=== PATIENT | male | born 2000 | race Caucasian/White ===

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

== ENCOUNTER 2022-07-29 13:58 | Emergency (ER) | payer BC, SELFPAY ==
[2022-07-29 14:15] VITALS: BP 128/89; PULSE 81; RESP 16; TEMP 36.7; O2SAT 99; BMI 19.9
[2022-07-29 14:31] LABS: MANUAL DIFF FLAG NO
[2022-07-29 14:33] LABS: Basophils Percent Auto 0.3 % (0-2); Eosinophils Percent Auto 0.2 % (0-4); Hematocrit 44.9 % (42.0-52.0); Hemoglobin 15.8 g/dl (14.0-18.0); Imm Gran Abs Auto 0.01 X10*3/uL (0.00-0.03); Imm Gran Pct Auto 0.2 % (0.0-0.4); Lymphocytes Absolute Auto 0.7 X10*3/uL (1.2-4.9); Lymphocytes Percent Auto 10.9 % (20-40); Mean Corpuscular HGB Conc 35.2 g/dl (31.0-36.0); Mean Corpuscular Volume 91.1 fL (80.0-98.0); Mean Platelet Volume 9.8 fL (9.4-12.4); Monocytes Absolute Auto 0.9 X10*3/uL (0.1-1.2); Monocytes Percent Auto 14.8 % (2-11); Neutrophils Absolute Auto 4.4 x10*3/uL (2.0-8.3); Neutrophils Percent Auto 73.6 % (45-73); Platelet Count 198 X10*3/uL (160-400); Red Blood Count 4.93 X10*6/uL (4.60-5.80); Red Cell Distribution Width 11.7 % (11.0-16.0)
[2022-07-29 14:48] LABS: Alanine Aminotransferase 21 U/L (0-40); Albumin Level 4.6 g/dL (3.5-5.0); Alkaline Phosphatase 82 U/L (39-117); Anion Gap 19 (12-20); Aspartate Amino Transferase 23 U/L (5-37); Blood Urea Nitrogen 11 mg/dL (9-16); Calcium 9.6 mg/dL (8.4-10.2); Carbon Dioxide 28 mmol/L (22-29); Chloride 94 mmol/L (96-108); Creatinine Clr Calc Pharmacy 95.3; Estimated Glomerular Filt Rate > 60; Glucose Random 84 mg/dL (60-115); Lipase 12 U/L (8-78); Potassium 3.7 mmol/L (3.3-5.1); Sodium 137 mmol/L (135-145); Total Protein 7.2 g/dL (6.5-8.0)
--- NOTE | 2022-07-29 14:56 | ED.GENADULT ---
HPI - General Adult General Chief complaint: Abdominal Pain Stated complaint: l side abd pain vomiting Time Seen by Provider: 07/29/22 17:27 Source: patient Mode of arrival: ambulatory Limitations: no limitations History of Present Illness HPI narrative: Patient otherwise healthy complaining of nausea vomiting diarrhea with upper abdominal pain for last 3 days started with vomiting and diarrhea the notice pain in the upper abdomen after vomiting which is watery and getting better vomiting about 7 to 8 times a day today vomited only 4 times also having watery diarrhea no recent intake of antibiotic no recent intake of seafood or travel no other family member sick no fever or chills Related Data Previous Rx's Medication Instructions Recorded omeprazole 20 mg capsule,delayed 20 mg PO DAILY #14 caps 07/29/22 release ondansetron 4 mg disintegrating 4 mg PO Q6-8H PRN nausea and 07/29/22 tablet vomiting #7 tabs sucralfate 1 gram tablet 1 g PO BID #30 tabs 07/29/22 Allergies Allergy/AdvReac Type Severity Reaction Status Date / Time No Known Allergies Allergy Unverified 11/05/19 17:29 Review of Systems Review of Systems: Yes all other systems are reviewed and are negative [facility] Social History Social History Smoked in Last 30 Days: No Use of substances other than those prescribed or required for medical reasons: Yes Substance Use Type: Marijuana Last Used Substance: Days (ago) Advance Directives: No Physical Exam ED Vital Signs: Vital Signs - 24 hr 07/29/22 14:15 07/29/22 17:11 07/29/22 20:25 Temperature 98.1 F Pulse Rate 81 90 87 Respiratory Rate 16 16 18 Blood Pressure 128/89 141/87 H 125/78 Pulse Oximetry 99 96 97 Oxygen Delivery Method Room Air Room Air Room Air BMI result Body Mass Index 19.9 Appearance: Alert. Oriented X3. No acute distress. Eyes: PERRLA, No Nystagmus ENT: Pharynx normal. Oral Mucosa moist Neck: Normal inspection. Neck supple. CVS: Normal heart rate and rhythm. Pulses normal. Respiratory: No respiratory distress. Equal air entry bilateral, no wheezing/rales/rhonchi Abdomen: Soft, mild epigastric tenderness no rebound tenderness or guarding. Bowel sounds are present, no mass palpable, no CVA tenderness Skin: Skin warm and dry. Normal skin color. Normal skin turgor. Extremities: No lower extremity edema. No calf tenderness Neuro: Oriented X 3. No motor deficit. Course Course Course Narrative: RME: 22 yold male presens to the ED for abdominal pain after eating. no chest pain, shortness of breath, or recent trauma. labs ordered Medications Administered Discontinued Medications Generic Name Dose Route Start Last Admin Trade Name Freq PRN Reason Stop Dose Admin Al Hydroxide/Mg Hydroxide 30 ml 07/29/22 19:29 07/29/22 19:36 Magnesium Hydrox/Alum Hydrox 30 Ml Oral.Susp PO 07/29/22 19:30 30 ml ONCE ONE Administration Famotidine 20 mg 07/29/22 18:01 07/29/22 18:14 Famotidine/Pf 20 Mg/2 Ml Vial IVPUSH 07/29/22 18:02 20 mg ONCE ONE Administration Sodium Chloride 1,000 mls @ 999 mls/hr 07/29/22 18:01 07/29/22 18:14 Ns IV 07/29/22 19:01 999 mls/hr .Q1H1M ONE Administration Ketorolac Tromethamine 30 mg 07/29/22 19:29 07/29/22 19:36 Ketorolac Tromethamine 30 Mg/Ml Vial IVPUSH 07/29/22 19:30 30 mg ONCE ONE Administration Ondansetron HCl 4 mg 07/29/22 18:01 07/29/22 18:14 Ondansetron Hcl 4 Mg/2 Ml Vial IVPUSH 07/29/22 18:02 4 mg ONCE ONE Administration Medical Decision Making Medical Decision Making [facility] Narrative: Patient with acute gastroenteritis improved after IV fluids had pain upper abdomen which improved after Maalox likely gastritis discharge patient home on Prilosec Maalox and Zofran labs are stable Differential Diagnosis Pancreatitis/gastritis/gastroenteritis Lab Data [facility] Lab Attestation statement: I reviewed the patient's lab results. 07/29/22 14:26 07/29/22 14:26 Labs: Lab Results 07/29/22 07/29/22 Range/Units 14:26 14:26 WBC 6.0 (4.8-10.8) X10*3/uL RBC 4.93 (4.60-5.80) X10*6/uL Hgb 15.8 (14.0-18.0) g/dl Hct 44.9 (42.0-52.0) % MCV 91.1 (80.0-98.0) fL MCH 32.0 (27.0-33.0) pg MCHC 35.2 (31.0-36.0) g/dl RDW 11.7 (11.0-16.0) % Plt Count 198 (160-400) X10*3/uL MPV 9.8 (9.4-12.4) fL Immature Gran % (Auto) 0.2 (0.0-0.4) % Neut % (Auto) 73.6 H (45-73) % Lymph % (Auto) 10.9 L (20-40) % [place] % (Auto) 14.8 H (2-11) % Eos % (Auto) 0.2 (0-4) % Baso % (Auto) 0.3 (0-2) % Lymph # (Auto) 0.7 L (1.2-4.9) X10*3/uL [place] # (Auto) 0.9 (0.1-1.2) X10*3/uL Eos # (Auto) 0.0 (0.0-0.4) X10*3/uL Baso # (Auto) 0.0 (0.0-0.2) X10*3/uL Abs Immat Gran (auto) 0.01 (0.00-0.03) X10*3/uL Absolute Neuts (auto) 4.4 (2.0-8.3) x10*3/uL Absolute Nucleated RBC 0.000 (0.0-0.012) X10*3/uL Nucleated RBC % (auto) 0.0 (0.0-0.2) /100WBC Sodium 137 (135-145) mmol/L Potassium 3.7 (3.3-5.1) mmol/L Chloride 94 L (96-108) mmol/L Carbon Dioxide 28 (22-29) mmol/L Anion Gap 19 (12-20) BUN 11 (9-16) mg/dL Creatinine 1.07 (0.5-1.4) mg/dL Estim Creat Clear Calc 95.3 Estimated GFR > 60 Random Glucose 84 (60-115) mg/dL Calcium 9.6 (8.4-10.2) mg/dL Total Bilirubin 1.0 (0.0-1.0) mg/dL AST 23 (5-37) U/L ALT 21 (0-40) U/L Alkaline Phosphatase 82 (39-117) U/L Total Protein 7.2 (6.5-8.0) g/dL Albumin 4.6 (3.5-5.0) g/dL Lipase 12 (8-78) U/L Discharge Plan Discharge Clinical Impression: Gastroenteritis Patient Disposition: Home, Self-Care Instructions: Gastroenteritis (ED) Additional Instructions: Drink plenty of fluids Avoid fried food Take medication as prescribed Follow with PCP if not better Prescriptions: New ondansetron 4 mg tablet,disintegrating 4 mg PO Q6-8H PRN (Reason: nausea and vomiting) Qty: 7 0RF omeprazole 20 mg capsule,delayed release(DR/EC) 20 mg PO DAILY Qty: 14 0RF sucralfate 1 gram tablet 1 g PO BID Qty: 30 0RF Interventions: ED Discharge Assessment Last Done: 07/29/22 20:27 Discharge Date/Time: 07/29/22 20:28
[2022-07-29 17:11] VITALS: BP 141/87; PULSE 90; RESP 16; O2SAT 96
[2022-07-29] MEDS: Famotidine/PF 20 MG/2 ML VIAL IVPUSH (18:14)
[2022-07-29] MEDS: 0.9 % Sodium Chloride 1,000 ML 999 ML IV (18:14)
[2022-07-29] MEDS: ondansetron HCL 4 MG/2 ML VIAL IVPUSH (18:14)
[2022-07-29] MEDS: Ketorolac Tromethamine 30 MG/ML VIAL IVPUSH (19:36)
[2022-07-29] MEDS: Magnesium Hydrox/Alum Hydrox 30 ML ORAL.SUSP PO (19:36)
[2022-07-29 20:25] VITALS: BP 125/78; PULSE 87; RESP 18; O2SAT 97
== END 2022-07-29 20:28 | disposition home or self-care (01) ==
PROVIDERS: Emergency Provider Internal Medicine; PCP Pediatrics
DX: K52.9 Noninfective gastroenteritis and colitis, unspecified (principal); Z79.899 Other long term (current) drug therapy
CPT/HCPCS: 36415; 80053; 83690; 85025; 96374; 96375; 99284; 99285; J1885; J2405

== ENCOUNTER 2024-11-28 09:02 | Emergency (ER) | payer BC, SELFPAY ==
[2024-11-28 09:04] VITALS: BP 138/88; PULSE 80; RESP 15; TEMP 36.4; O2SAT 97; BMI 21.7
--- OUTSIDE RECORDS SUMMARY | 2024-11-28 09:23 | XMS_ITS | Encounter Summary ---
Author Organization [facility] Address [address] [place] [address] Phone Care Team Providers Care Autocad Name Role Phone Corrina Cassidy DO Primary Care Provider [phone] Encounter Details Date Type Department Care Team (Late st Contact Info) Description 11/21/2015 Documentation [facility] [place] [address] [place] [address] Family Medicine, Physician [address] [place], [place] [phone] Social History Tobacco Use Types Packs/Day Years Used Date Smoking Tobacco: Never Comments:Never smoker Sex and Gender Information Value Date Recorded Sex Assigned at Not on file Legal Sex Male 5:09 PM EDT Gender Identity Not on file Sexual Orientation Not on file documented as of this encounter Plan of Treatment Not on file documented as of this encounter Visit Diagnoses Not on filedocumented in this encounter Care Teams Autocad Relationship Specialty Start Date End Date Corrina Cassidy DO [address] [place] [address] PCP - General 09/28/16 05/16/23 documented as of this encounter
--- OUTSIDE RECORDS SUMMARY | 2024-11-28 09:23 | XMS_ITS | Encounter Summary ---
Author Organization [facility] Address [address] [place] [address] Phone Care Team Providers Care Clinical Psychiatrist Name Role Phone Corrina Cassidy DO Primary Care Provider [phone] Encounter Details Date Type Department Care Team (Late st Contact Info) Description 06/04/2013 Documentation [facility] [place] Family Medicine [address] [place] [address] Family Medicine, Physician [address] [place], [place] [phone] Social History Tobacco Use Types Packs/Day Years Used Date Smoking Tobacco: Never Assessed Sex and Gender Information Value Date Recorded Sex Assigned at Not on file Legal Sex Male 5:09 PM EDT Gender Identity Not on file Sexual Orientation Not on file documented as of this encounter Plan of Treatment Not on file documented as of this encounter Visit Diagnoses Not on filedocumented in this encounter Care Teams Clinical Psychiatrist Relationship Specialty Start Date End Date Corrina Cassidy DO [address] [place] [address] PCP - General 09/28/16 05/16/23 documented as of this encounter
--- OUTSIDE RECORDS SUMMARY | 2024-11-28 09:23 | XMS_ITS | Encounter Summary ---
Author Organization [facility] Address [address] [place] [address] Phone Care Team Providers Care Sales Closer Name Role Phone Corrina Cassidy DO Primary Care Provider [phone] Encounter Details Date Type Department Care Team (Late st Contact Info) Description 11/18/2015 Documentation [facility] [place] Family Medicine [address] [place] [address] Family Medicine, Physician [address] [place], [place] [phone] Social History Tobacco Use Types Packs/Day Years [...] on filedocumented in this encounter Care Teams Sales Closer Relationship Specialty Start Date End Date Corrina Cassidy DO [address] [place] [address] PCP - General 09/28/16 05/16/23 documented as of this encounter
--- OUTSIDE RECORDS SUMMARY | 2024-11-28 09:23 | XMS_ITS | Encounter Summary ---
Author Organization [facility] Address [address] [place] [address] Phone Care Team Providers Care Auto Air Conditioning Apprentice Name Role Phone Corrina Cassidy DO Primary Care Provider [phone] Encounter Details Date Type Department Care Team (Late st Contact Info) Description 11/21/2015 Documentation [facility] [place] Family Medicine [address] [place] [address] Family Medicine, Physician [address] [place], [place] [phone] Social History Tobacco Use Types Packs/Day Years [...] on filedocumented in this encounter Care Teams Auto Air Conditioning Apprentice Relationship Specialty Start Date End Date Corrina Cassidy DO [address] [place] [address] PCP - General 09/28/16 05/16/23 documented as of this encounter
--- OUTSIDE RECORDS SUMMARY | 2024-11-28 09:23 | XMS_ITS | Encounter Summary ---
Author Organization [facility] Address [address] [place] [address] Phone Care Team Providers Care Manager Cancer Name Role Phone Corrina Cassidy DO Primary Care Provider [phone] Encounter Details Date Type Department Care Team (Late st Contact Info) Description 11/18/2015 Documentation [facility] [place] Family Medicine [address] [place] [address] Family Medicine, Physician [address] [place], [place] [phone] Social History Tobacco Use Types Packs/Day Years [...] on filedocumented in this encounter Care Teams Manager Cancer Relationship Specialty Start Date End Date Corrina Cassidy DO [address] [place] [address] PCP - General 09/28/16 05/16/23 documented as of this encounter
--- OUTSIDE RECORDS SUMMARY | 2024-11-28 09:23 | XMS_ITS | Encounter Summary ---
Author Organization [facility] Address [address] [place] [address] Phone Care Team Providers Care Inpatient Care Manager Rn Name Role Phone Corrina Cassidy DO Primary Care Provider [phone] Encounter Details Date Type Department Care Team (Late st Contact Info) Description 10/04/2016 Conversion Encounter [facility] [place] [address] [place] [address] Social History Tobacco Use Types Packs/Day Years [...] on filedocumented in this encounter Care Teams Inpatient Care Manager Rn Relationship Specialty Start Date End Date Corrina Cassidy DO [address] [place] [address] PCP - General 09/28/16 05/16/23 documented as of this encounter
--- OUTSIDE RECORDS SUMMARY | 2024-11-28 09:24 | XMS_ITS | Encounter Summary ---
Author Organization [facility] Address [address] [place] [address] Phone Care Team Providers Care Clam Treader Name Role Phone Corrina Cassidy DO Primary Care Provider [phone] Encounter Details Date Type Department Care Team (Late st Contact Info) Description 06/03/2013 Documentation [facility] [place] Family Medicine [address] [place] [address] Family Medicine, Physician [address] [place], [place] [phone] Social History Tobacco Use Types Packs/Day Years [...] on filedocumented in this encounter Care Teams Clam Treader Relationship Specialty Start Date End Date Corrina Cassidy DO [address] [place] [address] PCP - General 09/28/16 05/16/23 documented as of this encounter
--- OUTSIDE RECORDS SUMMARY | 2024-11-28 09:24 | XMS_ITS | Encounter Summary ---
Author Organization [facility] Address [address] [place] [address] Phone Care Team Providers Care Perfume Maker Name Role Phone Corrina Cassidy DO Primary Care Provider [phone] Encounter Details Date Type Department Care Team (Late st Contact Info) Description 06/24/2014 Documentation [facility] [place] Family Medicine [address] [place] [address] Family Medicine, Physician [address] [place], [place] [phone] Social History Tobacco Use Types Packs/Day Years [...] on filedocumented in this encounter Care Teams Perfume Maker Relationship Specialty Start Date End Date Corrina Cassidy DO [address] [place] [address] PCP - General 09/28/16 05/16/23 documented as of this encounter
--- OUTSIDE RECORDS SUMMARY | 2024-11-28 09:24 | XMS_ITS | Encounter Summary ---
Author Organization [facility] Address [address] [place] [address] Phone Care Team Providers Care Bull Rider Name Role Phone Corrina Cassidy DO Primary Care Provider [phone] Encounter Details Date Type Department Care Team (Late st Contact Info) Description 06/04/2013 Documentation [facility] [place] Family Medicine [address] [place] [address] Family Medicine, Physician [address] [place], [place] [phone] Social History Tobacco Use Types Packs/Day Years [...] on filedocumented in this encounter Care Teams Bull Rider Relationship Specialty Start Date End Date Corrina Cassidy DO [address] [place] [address] PCP - General 09/28/16 05/16/23 documented as of this encounter
--- OUTSIDE RECORDS SUMMARY | 2024-11-28 09:24 | XMS_ITS | Encounter Summary ---
Author Organization [facility] Address [address] [place] [address] Phone Care Team Providers Care Document Review Specialist Name Role Phone Corrina Cassidy DO Primary Care Provider [phone] Encounter Details Date Type Department Care Team (Late st Contact Info) Description 04/08/[address] [facility] [place] Family Medicine [address] [place] [address] Family Medicine, Physician [address] [place], [place] [phone] Social History Tobacco Use Types Packs/Day Years [...] on filedocumented in this encounter Care Teams Document Review Specialist Relationship Specialty Start Date End Date Corrina Cassidy DO [address] [place] [address] PCP - General 09/28/16 05/16/23 documented as of this encounter
--- OUTSIDE RECORDS SUMMARY | 2024-11-28 09:24 | XMS_ITS | Encounter Summary ---
Author Organization [facility] Address [address] [place] [address] Phone Care Team Providers Care Internet Security Specialist Name Role Phone Corrina Cassidy DO Primary Care Provider [phone] Encounter Details Date Type Department Care Team (Late st Contact Info) Description 09/05/2015 [place]ation [facility] [place] [address] [place] [address] Family Medicine, Physician [address] [place], [place] [phone] Social History Tobacco Use Types Packs/Day Years [...] on filedocumented in this encounter Care Teams Internet Security Specialist Relationship Specialty Start Date End Date Corrina Cassidy DO [address] [place] [address] PCP - General 09/28/16 05/16/23 documented as of this encounter
--- OUTSIDE RECORDS SUMMARY | 2024-11-28 09:24 | XMS_ITS | Clinical Summary ---
Author Organization [facility] Address [address] [place] [address] Phone Care Team Providers Care Accountant Helper Name Role Phone Unavailable Primary Care Provider Unavailabl e Allergies No known active allergies Medications ibuprofen 600 MG tablet TAKE 1 TABLET BY MOUTH EVERY 6 HOURS WITH FOOD 1 04/27/2019 Active Active Problems Problem Noted Date Diagnosed Date Influenza vaccine refused 05/31/2021 Acne vulgaris 05/22/2017 Resolved Problems Problem Noted Date Diagnosed Date Resolved Date Concussion with no loss of consciousness 05/22/2017 05/30/2017 Assessment & Plan (05/22/2017 4:55 PM EDT): Give acetaminophen every 4 hours OR ibuprofen every 6 hours for headache. Concussion handout given and reviewed. Do only activities that don't worsen your headache or put you at risk for another hit to your head - no contact sports until you are symptom free (headache, fatigue, fogginess etc) for as long as you had symptoms AND you are able to jog, walk and get your school work done without your symptoms returning. Call for vomiting, change in mental status, or other persistant symptoms that last more than a week, or if you are unable to progress through activity levels appropriately. Remember to drink lots of water, Eat healthy foods - at least 3 meals per day, and get a good nights sleep. Significantly limit screen and phone time. Followup here if you are not feeling better in one to two weeks, sooner if symptoms are worsening with vomiting etc.. Follow up with Dr Cassidy later next week. If you are feeling well she can write a note for you to return to sports, if not she can refer you to sports medicine for rehab. Immunizations Immunization Administration Dates Next Due DTaP 5 08/23/2006, 4,2002,10/09,2002 HPV Vaccine 9 Valent 12/13/2017,12/12/2016 Hep A, ped/adol 06/23/2014,06/03/2013 Hep B, ped/adol 12/13/2017, 3,2002,04/07 Hib (HbOC) 01/07/2004 Hib (PRP-T) 2002,2002,2002 IPV 08/23/2006, 4,2002,06/17 Influenza, injectable, quadr ivalent, preservative free 12/15/2018,12/13/2017,12/12/2016,11/17 Influenza, injectable, trivalent 11/03/2008,12/19 Influenza, intranasal, trivalent 11/18/2009 MMR 04/23/2003 MMRV 08/23/2006 Meningococcal Conj (Menactra) MCV4P 12/15/2018,0 06/03/2013 Pneumococcal Conjugate 01/07/2004,2002,2002,06/17 Tdap 06/03/2013 Varicella 04/23/2003 Family History Medical History Relation Name Comments Hypertension Maternal Grandfather Diabetes Maternal Grandmother Anxiety disorder Mother Skin cancer Paternal Grandfather Relation Name Status Comments Brother Alive Brother: Alive and well Father Alive Father: Alive a nd well Maternal Grandfather Materna l grandfather: Hypertension Maternal Grandmother Mother Alive Mother: Hearing loss Paternal Grandfather Sister Alive Sister: Hearing loss Social History Tobacco Use Types Packs/Day Years Used Date Smoking Tobacco: Never Smokeless Tobacco: Never Tobacco Cessation:Counseling Given: No Comments:Never smoker Alcohol Use Standard Drinks/Week Comments No 0 (1 standard drink = 0.6 oz pur e alcohol) Hunger/Food Answer Date Recorded In the last 12 months, did y ou or your family ever eat less than you felt you should because there wasn't enough money for food? No 05/31/2021 Stable Housing Answer Date Recorded Are you worried that in the next 2 months you may not have stable housing? No 05/31/2021 Transportation Concerns Answer Date Rec orded In the last 12 months, have you or your family ever had to go without healthcare because you didn't have a way to get there? No 05/31/2021 Hazards in Home Answer Date Recorded Think about the place you li ve. Do you have problems with any of the following? Pests (mice or roaches), mold, no/not working smoke detectors, water leaks, no window guards. No 2021 Financing Utilities Answer Date Recorde d In the last 12 months, has t he electric, gas, oil, or water company threatened to shut off your services in your home? No 05/31/2021 Safety at Home Answer Date Recorded Are you or your family worried about feeling saf e in your home? No 05/31/2021 Outside Support Answer Date Recorded Do you feel that you need mo re support from other people or programs to help you care for yourself or your family? No 05/31/2021 Understanding Health Concerns Answer Da te Recorded Do you need help understandi ng your or your child's healthcare needs (diagnosis, medications, plan, etc.)? No 05/31/2021 Financing Health Concerns Answer Date R ecorded In the last 12 months, was t here a time when your child needed to see a doctor or get medications or supplies but could not because of cost? No 05/31/2021 Missing School or Work Answer Date Emerson rded Did you or your child miss s chool or work because of a health problem that could have been avoided? No 05/31/2021 Sex and Gender Information Value Date Recorded Sex Assigned at Not on file Legal Sex Male 5:09 PM EDT Gender Identity Not on file Sexual Orientation Not on file Last Filed Vital Signs Vital Sign Reading Time Taken Comments Blood Pressure 116/76 05/31/2021 2:56 PM EDT Pulse 90 05/31/2021 2:56 PM EDT Temperature 37.3 C (99.2 F) 05/31/2021 2:56 PM EDT Respiratory Rate - - Oxygen Saturation 97% 09/01/2015 12: 00 AM EDT Inhaled Oxygen Concentration - - Weight 55.2 kg (121 lb 12.8 oz) 05/31/2021 2:56 PM EDT Height 172.7 cm (5' 8 ) 05/31/2021 2:56 PM EDT Body Mass Index 18.52 05/31/2021 2:56 PM EDT Plan of Treatment Health Maintenance Due Date Last Done Comments Men B Vaccine (1 of 2 - Standard) 2018 DTaP,Tdap,and Td Vaccines (7 - Td or Tdap) 06/04/2023 06/03/2013, 08/23/2006, 01/07/2004, Additional history exists Influenza Vaccines (#1) 2024 12/16/19 19, 12/13/2017, 12/12/2016, Additional history exists COVID-19 Vaccine (3 - 2024-2 6 season) 2024 03/30/2020, 03/09/2020 HIB Vaccines Completed 01/07/2004, 07/2002, 2002, Additional history exists Pneumococcal Vaccine Completed 01/07/2004, 2002, 2002, Additional history exists IPV Vaccines Completed 08/23/2006, 03/2003, 2002, Additional history exists MMR Vaccines Completed 08/23/2006, 04/23/2003 Varicella Vaccines Completed 08/23/2006, 04/23/2003 Hepatitis A Vaccines Completed 06/23/2014, 06/04/19 14 HPV Vaccines Completed 12/13/2017, 12/12/2016 Hepatitis B Vaccines Completed 12/13/2017, 2002, 2002, Additional history exists Meningococcal Vaccine Completed 12/15/2018, 014 Insurance [facility]
--- OUTSIDE RECORDS SUMMARY | 2024-11-28 09:24 | XMS_ITS | Clinical Summary ---
Author Organization [facility] Address [address] [place] [id number] Phone Care Team Providers Care Lane Attendant Name Role Phone Corrina Cassidy Primary Care Provider [phone] Allergies No known active allergies Medications No known medications Active Problems No known active problems Social History Tobacco Use Types Packs/Day Years Used Date Smoking Tobacco: Never Smokeless Tobacco: Never Alcohol Use Standard Drinks/Week Comments Never 0 (1 standard drink = 0.6 oz pur e alcohol) Education Answer Date Recorded Are you interested in more education? Not on archana e 06/15/2022 Are you concerned about learning? Not on file 06/15/2022 No 06/15/2022 No 06/15/2022 Digital Access Answer Date Recorded No 07/14/2022 No 07/14/2022 No 07/14/2022 Reliable internet access at home? Not on file 07/14/2022 Device with a working camera? Not on file Sex and Gender Information Value Date Recorded Sex Assigned at Not on file Legal Sex Male 8:42 AM EDT Gender Identity Not on file Sexual Orientation Not on file Last Filed Vital Signs Vital Sign Reading Time Taken Comments Blood Pressure - - Pulse - - Temperature - - Respiratory Rate - - Oxygen Saturation - - Inhaled Oxygen Concentration - - Weight 59 kg (130 lb) 06/20/2018 8:59 AM EDT Height 172.7 cm (5' 8 ) 06/20/2018 8:59 AM EDT Body Mass Index 19.77 06/20/2018 8:59 AM EDT Plan of Treatment Health Maintenance Due Date Last Done Comments DEPRESSION SCREENING 2014 SMOKING Hx and SMOKELESS TOBACCO SCREENING 2015 MENINGOCOCCAL VACCINES (B) (1 of 2 - Standard) 2018 HEPATITIS C SCREENING 2020 HIV ONE-TIME SCREENING (18-65 YEARS) 2020 Adult Td,Tdap Booster 06/04/2023 06/03/2013 INFLUENZA VACCINE (#1) 2024 9, 12/13/2017, 12/12/2016, Additional history exists COVID-19 VACCINE ( season) 2024 03/30/2020, 03/09/2020 HIB VACCINES Completed 01/07/2004, 07/2002, 2002, Additional history exists PNEUMOCOCCAL VACCINES (0-49 years) Aged Out 01/07/2004, 2002, 2002, Additional history exists No longer eligible based on patient's age to complete this topic HEPATITIS A VACCINES Completed 06/23/2014, 06/04/19 14 HPV VACCINES Completed 12/13/2017, 12/12/2016 MENINGOCOCCAL VACCINES (ACWY) Completed 12/15/2018, 06/03/2013 Medical Devices Not on file Insurance [address] [place], [place] [id number] POS [facility] [place] [address] [place], [place] [id number] [address] [place] [address] [place] [id number] [place] [address] [place] [address] [place] [id number] [address] [address] [place], [place] [id number] POS Care Teams Lane Attendant Relationship Specialty Start Date End Date Corrina Cassidy DO [address] [place] [address] [place] [address] PCP - General Pediatrics 06/20/18 Additional Source Comments The information contained in this document represents components of the legal health record. It is not the complete legal health record.[facility]
--- OUTSIDE RECORDS SUMMARY | 2024-11-28 09:24 | XMS_ITS | Encounter Summary ---
Author Organization [facility] Address [address] [place] [phone] Phone Care Team Providers Care Quotation Clerk Name Role Phone Corrina Cassidy DO Primary Care Provider [phone] Encounter Details Date Type Department Care Team (Late st Contact Info) Description 03/27/2011 Documentation [facility] Family Medicine [address] [place] [address] Family Medicine, Physician [address] [place], [place] [id number] Social History Tobacco Use Types Packs/Day Years [...] on filedocumented in this encounter Care Teams Quotation Clerk Relationship Specialty Start Date End Date Corrina Cassidy DO [address] [place] [address] PCP - General 09/28/16 05/16/23 documented as of this encounter
--- NOTE | 2024-11-28 09:38 | ED_ITS ---
HPI - General Adult General Chief complaint: General Medical Stated complaint: vein issues Time Seen by Provider: 11/28/24 09:34 Source: patient and RN notes reviewed Mode of arrival: ambulatory Limitations: no limitations History of Present Illness ED Provider: Donna Nicholson PA-C [facility] narrative: This is a 24-year-old male who presents emergency department complaints of burning sensation to upper and lower extremities. Patient states that he was bit by a tick approximately 2 weeks ago. He states that over the last week he has started to have some burning sensation which initially started on his left arm and now has progressed to his legs. He denies any recent trauma or injury. Denies history of similar symptoms. No fevers or chills. No chest pain or shortness of breath. No other complaints or concerns at this time. MD complaint: Burning sensation to upper and lower extremities Onset (ago): day(s) Severity: moderate Quality: burning Pain Consistency: constant Relieving factors: none Exacerbating factors: none Associated symptoms: denies other symptoms Treatments prior to arrival: none Related Data Previous Rx's ?Medication ?Instructions ?Recorded omeprazole 20 mg capsule,delayed 20 mg PO DAILY #14 ca ps 07/29/22 release ondansetron 4 mg disintegrating 4 mg PO Q6-8H PRN naus ea and 07/29/22 tablet vomiting #7 tabs sucralfate 1 gram tablet 1 g PO BID #30 tabs 07/29/22 doxycycline hyclate 100 mg tablet 100 mg PO BID 14 day s #28 tabs 11/28/24 Allergies Allergy/AdvReac Type Severity Reaction Status Date / Time No Known Allergies Allergy Verified 11/28/24 09:06 Review of Systems 2 Review of Systems: Constitutional : No Fever, No Chills ENT/Mouth : No sore throat, No Rhinorrhea Eyes: No Eye Pain, No Swelling, No Redness Cardiovascular : No Chest Pain, No SOB Respiratory : No Cough, No Sputum Gastrointestinal : No Nausea, No Vomiting, No Diarrhea, No abdominal Pain Genitourinary : No Dysuria, No Hematuria Musculoskeletal : No joint pain, No Myalgias, No Joint Swelling Skin : No Skin Lesions Neuro : No Weakness, No Numbness, No Headache All other systems reviewed and are negative Yes all other systems are reviewed and are negative Constitutional: Constitutional: Reports as per [facility] Past Medical History Attestation statement: The following information was validated with the patient. Social History Social History Substance Use Type: Marijuana Advance Directives: No Advance Directives Information Provided: No Do you have a plan to hurt others: No Plan Physical Exam ED Vital Signs: Vital Signs - 24 hr 11/28/24 09:04 11/28/24 11:26 Temperature 97.6 F 97.6 F Pulse Rate 80 80 Respiratory Rate 15 15 Blood Pressure 138/88 138/88 Pulse Oximetry 97 97 Oxygen Delivery Method Room Air Room Air BMI result Body Mass Index 21.7 Const General: cooperative, comfortable and no acute distress Orientation/consciousness: patient oriented x3 Limitations: no limitations HENMT Head: Yes normal to inspection, Yes normocephalic and Yes atraumatic Ears: hearing grossly normal bilaterally General nose exam: Normal external nose present Face and sinus: Yes normal facial exam Mouth: Normal oral and palatal mucosa present, oropharynx normal and moist mucous membranes Throat: Yes posterior oropharynx normal Eyes General: appearance normal, both eyes and all related structures Eyelids: Yes eyelids normal Conjunctivae: conjunctivae normal Sclerae: sclerae normal Pupils: Equal, round and reactive pupils present EOM: EOMs intact bilaterally Neck Neck: Yes normal visual inspection, Yes full ROM and Yes no lymphadenopathy Lymphatic: no lymphadenopathy noted Chest Chest palpation & inspection: normal inspection of the chest Resp Effort & Inspection: normal respiratory effort and able to speak in complete sentences Auscultation: clear to auscultation bilaterally, no crackles, no rales, no rhonchi and no wheezes Cardio Rate: regular rate Rhythm: regular rhythm Heart sounds: S1 normal heart sound present and S2 normal heart sound present GI Inspection: Yes normal to inspection Skin General skin exam: no rashes or lesions noted Trauma: no lacerations or abrasions Wounds: no wounds Neuro General: patient oriented x3 and moves all extremities Cranial nerves: Yes Equal, round and reactive pupils present Extrem General: Yes normal to inspection Right upper extremity: normal to inspection Left upper extremity: normal to inspection Right lower extremity: normal to inspection Left lower extremity: normal to inspection Medical Decision Making Medical Decision Making MDM Narrative: This is a 24-year-old male who presents emergency department with concerns of burning sensation to upper and lower extremities. This all started several days ago. On arrival, patient is well-appearing, appears to be under no acute distress. No chest pain or shortness for breath. No neck pain. Recent tick bite several weeks ago which he believes his on him for approximately 10 hours. He remove this. There is a small superficial tick bite noted to the anterior left thigh. No surrounding erythema or warmth. No drainage. Differential diagnoses include electrolyte derangement, rhabdomyolysis, myalgias, tick-borne illness. Denies any history of IVDA. Plan: Will obtain basic labs, as well as tick panel. Labs returned, he has slight leukopenia at 3.8, all other blood work reassuring. Tick panel still pending. Given exposure to tick bite as well as nonspecific symptoms, will treat with doxycycline. Given strict return precautions. Advised follow-up with PCP, he understands and agrees with plan. Given strict return precautions. Patient stable for discharge. Differential Diagnosis Differential Diagnoses: The differential diagnosis associated with the presentation includes See above Lab Data [facility] Lab Attestation statement: I reviewed the patient's lab results. See [facility] 11/28/24 10:05 11/28/24 10:06 Labs: Lab Results 11/28/24 11/28/24 Range/Units 10:05 10:06 WBC 3.8 L (4.8-10.8) X10*3/uL RBC 5.07 (4.60-5.80) X10*6/uL Hgb 16.0 (14.0-18.0) g/dl Hct 46.8 (42.0-52.0) % MCV 92.3 (80.0-98.0) fL MCH 31.6 (27.0-33.0) pg MCHC 34.2 (31.0-36.0) g/dl RDW 12.1 (11.0-16.0) % Plt Count 264 D (160-400) X10*3/uL MPV 9.5 (9.4-12.4) fL Immature Gran % (Auto) 0.3 (0.0-0.4) % Neut % (Auto) 54.9 (45-73) % Lymph % (Auto) 36.9 (20-40) % [place] % (Auto) 6.9 (2-11) % Eos % (Auto) 0.5 (0-4) % Baso % (Auto) 0.5 (0-2) % Lymph # (Auto) 1.4 (1.2-4.9) X10*3/uL [place] # (Auto) 0.3 (0.1-1.2) X10*3/uL Eos # (Auto) 0.0 (0.0-0.4) X10*3/uL Baso # (Auto) 0.0 (0.0-0.2) X10*3/uL Abs Immat Gran (auto) 0.01 (0.00-0.03) X10*3/uL Absolute Neuts (auto) 2.1 (2.0-8.3) x10*3/uL Absolute Nucleated RBC 0.000 (0.0-0.012) X10*3/uL Nucleated RBC % (auto) 0.0 (0.0-0.2) /100WBC ESR 2 (0-15) MM/HR Sodium 139 (135-145) mmol/L Potassium 4.2 (3.3-5.1) mmol/L Chloride 104 (96-108) mmol/L Carbon Dioxide 28 (22-29) mmol/L Anion Gap 11 L (12-20) BUN 13 (9-16) mg/dL Creatinine 1.07 (0.5-1.4) mg/dL Estim Creat Clear Calc 102.3 Estimated GFR > 60 Random Glucose 111 (60-115) mg/dL Calcium 9.3 (8.4-10.2) mg/dL Magnesium 2.2 (1.6-2.6) mg/dL Total Bilirubin 0.7 (0.0-1.0) mg/dL Direct Bilirubin 0.2 (0.0-0.5) mg/dL AST 25 (5-37) U/L ALT 27 (0-40) U/L Alkaline Phosphatase 84 (39-117) U/L Total Creatine Kinase 112 (38-174) U/L C-Reactive Protein < 0.10 (< or = 0.50) mg/dL Total Protein 7.6 (6.5-8.0) g/dL Albumin 5.0 (3.5-5.0) g/dL Discharge Plan Discharge Clinical Impression: Myalgia, Tick bite Patient Disposition: Home, Self-Care Instructions: Tick Bite (ED) Additional Instructions: You were seen in the ER today. We obtain basic labs. He did have a slightly low white blood cell count at 3.8, this is very nonspecific, and can be attributed to a viral process, or this can be your normal. Please follow-up with your primary care physician in several weeks and have your labs repeated. Your liver function as well as your kidney function was within normal limits. Your inflammatory markers were negative. We also screened you for multiple tick-borne illnesses. These often times can take up to greater than 1 week for them to returned. Given your symptoms, I am starting you on doxycycline. Doxycycline is an antibiotic take twice a day with food. Please be advised that this can cause increased sensitivity to sun therefore use adequate sun protection. Please follow-up with your primary care physician regarding this visit. If any new or worsening symptoms occur including but not limited to severe headache, dizziness, severe neck pain, chest pain, shortness of breath, please seek emergent care. Prescriptions: New doxycycline hyclate 100 mg tablet 100 mg PO BID 14 Days Qty: 28 0RF No Action ondansetron 4 mg tablet,disintegrating 4 mg PO Q6-8H PRN (Reason: nausea and vomiting) Qty: 7 0RF omeprazole 20 mg capsule,delayed release(DR/EC) 20 mg PO DAILY Qty: 14 0RF sucralfate 1 gram tablet 1 g PO BID Qty: 30 0RF Interventions: ED Discharge Assessment Last Done: 11/28/24 11:26 Discharge Date/Time: 11/28/24 11:32 Print Language: Yoruba
[2024-11-28 10:10] LABS: MANUAL DIFF FLAG NO
[2024-11-28 10:13] LABS: Hematocrit 46.8 % (42.0-52.0); Hemoglobin 16.0 g/dl (14.0-18.0); Imm Gran Abs Auto 0.01 X10*3/uL (0.00-0.03); Imm Gran Pct Auto 0.3 % (0.0-0.4); Lymphocytes Absolute Auto 1.4 X10*3/uL (1.2-4.9); Mean Corpuscular HGB Conc 34.2 g/dl (31.0-36.0); Mean Corpuscular Hemoglobin 31.6 pg (27.0-33.0); Mean Corpuscular Volume 92.3 fL (80.0-98.0); NRBC Abs Auto 0.000 X10*3/uL (0.0-0.012); NRBC Pct Auto 0.0 /100WBC (0.0-0.2); Platelet Count 264 X10*3/uL (160-400); Red Blood Count 5.07 X10*6/uL (4.60-5.80); White Blood Count 3.8 X10*3/uL (4.8-10.8)
[2024-11-28 10:38] LABS: Alanine Aminotransferase 27 U/L (0-40); Albumin Level 5.0 g/dL (3.5-5.0); Alkaline Phosphatase 84 U/L (39-117); Anion Gap 11 (12-20); Aspartate Amino Transferase 25 U/L (5-37); Blood Urea Nitrogen 13 mg/dL (9-16); Calcium 9.3 mg/dL (8.4-10.2); Carbon Dioxide 28 mmol/L (22-29); Chloride 104 mmol/L (96-108); Creatinine Clr Calc Pharmacy 102.3; Estimated Glomerular Filt Rate > 60; Magnesium 2.2 mg/dL (1.6-2.6); Potassium 4.2 mmol/L (3.3-5.1); Sodium 139 mmol/L (135-145); Total Protein 7.6 g/dL (6.5-8.0)
[2024-11-28 11:26] VITALS: BP 138/88; PULSE 80; RESP 15; TEMP 36.4; O2SAT 97
[2024-12-01 02:18] LABS: Lyme Abs Screen <0.90 index
[2024-12-04 07:29] LABS: A. Phagocytophilum Ab IgG <1:64 (<1:64); A. Phagocytophilum Ab IgM <1:20 (<1:20)
== END 2024-11-28 11:32 | disposition home or self-care (01) ==
PROVIDERS: Physician Assistant Medical; Emergency Provider Emergency Medicine
DX: M79.10 Myalgia, unspecified site (principal); T63.481A Toxic effect of venom of other arthropod, accidental (unintentional), initial encounter; Y92.9 Unspecified place or not applicable; Z79.899 Other long term (current) drug therapy
CPT/HCPCS: 36415; 80048; 80076; 82550; 83735; 85025; 85652; 86140; 86617; 86618; 86666; 86753; 99282; 99283